=== PATIENT | male | born 1990 | race Caucasian/White ===

== ENCOUNTER 2016-04-19 23:46 | Emergency (ER) | payer OTHER ==
[2016-04-19] MEDS ORDERED: PSEUDOEPHEDRINE 30 MG TABLET PO STA (23:56)
[2016-04-19] MEDS ORDERED: BENZONATATE 100 MG CAPSULE PO STA (23:56)
[2016-04-19] MEDS ORDERED: DEXAMETHASONE 10 MG/ML VIAL PO STA (23:56)
[2016-04-20] MEDS ORDERED: BENZONATATE 100 MG CAPSULE PO ONE
[2016-04-20] MEDS ORDERED: DEXAMETHASONE 10 MG/ML VIAL ONE (00:01)
[2016-04-20] MEDS ORDERED: PSEUDOEPHEDRINE 30 MG TABLET PO ONE (00:01)
== END 2016-04-20 00:22 | disposition home or self-care (01) ==
DX: J06.9 Acute upper respiratory infection, unspecified (principal)
CPT/HCPCS: 99283; A9270